=== PATIENT | male | born 1985 | race Caucasian/White ===

== ENCOUNTER 2025-06-07 16:08 | Emergency (ER) | payer MEDICAID ==
[~2025-06-07] VITALS: Ht 157.5 cm; Wt 68.0 kg
[~2025-06-07 16:08] MED LIST: ASPI-1160 PO; CARV3.1242 PO; CLOP-31 PO; LIP40 PO; LISI2.5T47 PO
[2025-06-07 16:16] VITALS: O2SAT 99
[2025-06-07] MEDS ORDERED: LISI2.5T47 PO (18:27)
[2025-06-07] MEDS ORDERED: CLOP-31 PO (18:27)
[2025-06-07] MEDS ORDERED: ASPI-1160 PO (18:27)
[2025-06-07] MEDS ORDERED: LIP40 PO (18:27)
[2025-06-07] MEDS ORDERED: CARV3.1242 PO (18:27)
[2025-06-07 18:53] VITALS: BP 122/77; PULSE 62; RESP 16; TEMP 36.7; O2SAT 100
== END 2025-06-07 18:57 | disposition home or self-care (01) ==
LOC: ER 16:08
DX: E78.5 Hyperlipidemia, unspecified (principal); E78.00 Pure hypercholesterolemia, unspecified; Z79.899 Other long term (current) drug therapy; Z79.02 Long term (current) use of antithrombotics/antiplatelets; Z76.0 Encounter for issue of repeat prescription; Z79.82 Long term (current) use of aspirin
CPT/HCPCS: 99281

== ENCOUNTER 2025-06-22 12:31 | Emergency (ER) | payer MEDICAID ==
[~2025-06-22] VITALS: Ht 152.4 cm; Wt 115.0 kg
[2025-06-22 13:01] VITALS: O2SAT 98
[2025-06-22 13:08] LABS: BASOPHILS % 0.5 % (0.0-2.0); EOSINOPHILS % 1.7 % (0.0-5.0); HEMATOCRIT. 44.1 % (42.0-52.0); HEMOGLOBIN. 15.4 g/dL (14.0-18.0); LYMPHOCYTES % 12.1 % (20.0-50.0); MEAN PLATELET VOLUME 7.3 fl (7.4-10.4); MONOCYTES % 9.2 % (2.0-8.0); NEUTROPHILS % 76.5 % (40.0-76.0); PLATELET 228 x1000/uL (130-400); RED BLOOD CELL COUNT 4.76 mill/uL (4.7-6.1); RED CELL DISTRIBUTION WIDTH 12.8 % (11.6-14.6)
[2025-06-22 13:34] LABS: CREATININE 0.8 mg/dL (0.6-1.3); UREA NITROGEN BLOOD 9 mg/dL (9-23)
[2025-06-22 13:36] LABS: ASPARTATE AMINOTRANSFERASE 18 IU/L (<34); BILIRUBIN DIRECT 0.7 mg/dL (<=3.0)
[2025-06-22 13:37] LABS: BILIRUBIN TOTAL 2.1 mg/dL (0.1-1.0); PROTEIN TOTAL 6.9 g/dL (6.0-8.3)
[2025-06-22 14:28] LABS: CLARITY URINE CLEAR (CLEAR); COLOR URINE YELLOW (YELLOW); GLUCOSE URINE NEGATIVE (NEGATIVE); KETONES URINE NEGATIVE (NEGATIVE); LEUKOCYTE ESTERASE URINE NEGATIVE (NEGATIVE); NITRITE URINE NEGATIVE (NEGATIVE); OCCULT BLOOD URINE NEGATIVE (NEGATIVE); PH URINE 6.0 (4.5-8.0); PROTEIN URINE NEGATIVE (NEGATIVE); SPECIFIC GRAVITY URINE 1.019 (1.005-1.030); UROBILINOGEN URINE 0.2 E.U./dL (0.2-1.0)
[2025-06-22] MEDS: ACETAMINOPHEN 325MG TABLET PO ONE (15:27)
[2025-06-22] MEDS ORDERED: AMOX1TAB16 MT (17:48)
[2025-06-22 18:16] VITALS: BP 115/88; PULSE 64; RESP 18; O2SAT 100
[2025-06-22] MEDS ORDERED: IOHEXOL-300 100 ML BOTTLE ONE (23:22)
== END 2025-06-22 18:21 | disposition home or self-care (01) ==
LOC: ER 12:38
DX: K57.32 Diverticulitis of large intestine without perforation or abscess without bleeding (principal); I25.10 Atherosclerotic heart disease of native coronary artery without angina pectoris; Z79.02 Long term (current) use of antithrombotics/antiplatelets; Z79.82 Long term (current) use of aspirin; Z79.899 Other long term (current) drug therapy
CPT/HCPCS: 80076; 80048; 81003; 83690; 85025; 36415; 74177; 99285; Q9967; Z7610